=== PATIENT | female | born 1975 | race Caucasian/White ===

== ENCOUNTER 2018-04-21 19:12 | Emergency (ER) | payer OTHER ==
[~2018-04-21] VITALS: Ht 165.1 cm; Wt 99.8 kg
[~2018-04-21 19:12] MED LIST: BIAXIN 500 MG500 M2 PO; ERYTHROMYCIN E3.5 G3 OPHTHALMIC; FLEXERIL PO; HYDROCODONE-AP1 EAC6 PO; HYDROCODONE-APA1 TA1 PO; KEFLEX500 MG PO; MEDROLDOSEPACK PO; NAPHCON-A EYE D15 ML OP
[2018-04-21 19:25] VITALS: BP 162/87
[2018-04-21] MEDS ORDERED: CYMBALTA60 MG PO (19:30)
[2018-04-21] MEDS ORDERED: GABAPENTIN 100100 MG PO (19:30)
[2018-04-21] MEDS ORDERED: VIBRAMYCIN 100100 MG PO (20:26)
[2018-04-21] MEDS ORDERED: PHENERGAN 25 MG25 M1 PO (20:26)
== END 2018-04-21 21:00 | disposition home or self-care (01) ==
LOC: ER 19:12
DX: L03.311 Cellulitis of abdominal wall (principal); M19.90 Unspecified osteoarthritis, unspecified site; M79.7 Fibromyalgia; G43.909 Migraine, unspecified, not intractable, without status migrainosus; Z90.710 Acquired absence of both cervix and uterus; Z88.2 Allergy status to sulfonamides; F17.210 Nicotine dependence, cigarettes, uncomplicated